=== PATIENT | female | born 1940 | race Caucasian/White ===

== ENCOUNTER 2020-03-06 10:24 | Outpatient (REF) | payer MEDICARE, OTHER, SELFPAY ==
[2020-03-06 14:36] LABS: MANUAL DIFF FLAG NO
[2020-03-06 14:42] LABS: Basophils Percent Auto 0.7 % (0-2); Eosinophils Absolute Auto 0.2 X10*3/uL (0.0-0.4); Eosinophils Percent Auto 3.8 % (0-4); Hematocrit 38.4 % (37-47); Hemoglobin 12.5 g/dl (12.0-16.0); Imm Gran Abs Auto 0.02 X10*3/uL (0.00-0.03); Imm Gran Pct Auto 0.5 % (0.0-0.4); Lymphocytes Absolute Auto 1.2 X10*3/uL (1.2-4.9); Lymphocytes Percent Auto 27.5 % (20-40); Mean Corpuscular HGB Conc 32.6 g/dl (31.0-35.0); Mean Corpuscular Hemoglobin 31.1 pg (27.0-33.0); Mean Corpuscular Volume 95.5 fL (80-98); Mean Platelet Volume 11.6 fL (9.4-12.3); Monocytes Absolute Auto 0.4 X10*3/uL (0.1-1.2); Monocytes Percent Auto 9.7 % (2-11); Neutrophils Absolute Auto 2.6 X10*3/uL (2.0-8.3); Neutrophils Percent Auto 57.8 % (45-73); Platelet Count 206 X10*3/uL (160-400); Red Blood Count 4.02 X10*6/uL (4.20-5.50); Red Cell Distribution Width 12.1 % (11.0-16.0); White Blood Count 4.4 X10*3/uL (4.8-10.8)
[2020-03-06 15:10] LABS: Alanine Aminotransferase 11 U/L (0-31); Albumin Level 4.4 g/dL (3.5-5.0); Alkaline Phosphatase 49 U/L (39-117); Anion Gap 13 (12-20); Aspartate Amino Transferase 15 U/L (5-31); Bilirubin Total 1.3 mg/dL (0.0-1.0); Blood Urea Nitrogen 18 mg/dL (9-16); Calcium 9.1 mg/dL (8.4-10.2); Carbon Dioxide 27 mmol/L (22-29); Chloride 105 mmol/L (96-108); Cholesterol 220 mg/dL; Estimated Glomerular Filt Rate 47; Glucose Random 83 mg/dL (60-115); HDL Cholesterol 51 mg/dL; LDL Cholesterol Calculated 131 mg/dl; Potassium 4.5 mmol/l (3.3-5.1); Sodium 140 mmol/L (135-145); Total Protein 6.8 g/dL (6.5-8.0); Triglycerides 192 mg/dL
[2020-03-06 15:33] LABS: Free T4 (Free Thyroxine) 0.92 ng/dL (0.71-1.85); Thyroid Stimulating Hormone 3.49 mIU/mL (0.32-4.0); Vitamin B12 1065 pg/mL (200-900)
== END 2020-03-06 10:25 | disposition home or self-care (01) ==
LOC: HO.10HDL 10:24
PROVIDERS: Visit Provider Internal Medicine
DX: I12.9 Hypertensive chronic kidney disease with stage 1 through stage 4 chronic kidney disease, or unspecified chronic kidney disease (principal); N18.9 Chronic kidney disease, unspecified; E03.9 Hypothyroidism, unspecified; K21.9 Gastro-esophageal reflux disease without esophagitis; E78.00 Pure hypercholesterolemia, unspecified
CPT/HCPCS: 36415; 80053; 80061; 82607; 84439; 84443; 85025

== ENCOUNTER 2020-10-04 07:38 | Outpatient (REF) | payer MEDICARE, OTHER, SELFPAY ==
[2020-10-04 11:10] LABS: MANUAL DIFF FLAG NO
[2020-10-04 11:25] LABS: Eosinophils Absolute Auto 0.2 X10*3/uL (0.0-0.4); Eosinophils Percent Auto 4.5 % (0-4); Hemoglobin 12.5 g/dl (12.0-16.0); Imm Gran Abs Auto 0.01 X10*3/uL (0.00-0.03); Imm Gran Pct Auto 0.3 % (0.0-0.4); Lymphocytes Absolute Auto 1.2 X10*3/uL (1.2-4.9); Lymphocytes Percent Auto 30.2 % (20-40); Mean Corpuscular HGB Conc 32.9 g/dl (31.0-35.0); Mean Corpuscular Hemoglobin 31.1 pg (27.0-33.0); Mean Corpuscular Volume 94.5 fL (80-98); Mean Platelet Volume 11.8 fL (9.4-12.3); Monocytes Absolute Auto 0.5 X10*3/uL (0.1-1.2); Monocytes Percent Auto 11.8 % (2-11); Neutrophils Absolute Auto 2.1 X10*3/uL (2.0-8.3); Neutrophils Percent Auto 52.2 % (45-73); Platelet Count 184 X10*3/uL (160-400); Red Blood Count 4.02 X10*6/uL (4.20-5.50); Red Cell Distribution Width 12.1 % (11.0-16.0)
[2020-10-04 11:42] LABS: Alanine Aminotransferase 10 U/L (0-31); Albumin Level 4.2 g/dL (3.5-5.0); Alkaline Phosphatase 51 U/L (39-117); Anion Gap 12 (12-20); Aspartate Amino Transferase 14 U/L (5-31); Bilirubin Total 1.2 mg/dL (0.0-1.0); Blood Urea Nitrogen 16 mg/dL (9-16); Calcium 9.3 mg/dL (8.4-10.2); Carbon Dioxide 24 mmol/L (22-29); Chloride 108 mmol/L (96-108); Cholesterol 194 mg/dL; Estimated Glomerular Filt Rate 42; Glucose Fasting 86 mg/dL (60-99); HDL Cholesterol 54 mg/dL; LDL Cholesterol Calculated 98 mg/dl; Potassium 4.4 mmol/L (3.3-5.1); Sodium 140 mmol/L (135-145); Total Protein 6.7 g/dL (6.5-8.0); Triglycerides 213 mg/dL
[2020-10-04 11:49] LABS: Free T4 (Free Thyroxine) 0.94 ng/dL (0.71-1.85); Thyroid Stimulating Hormone 7.22 uIU/mL (0.32-4.0)
== END 2020-10-04 07:39 | disposition home or self-care (01) ==
LOC: HO.HMGCLDS 07:38
PROVIDERS: PCP Internal Medicine; Visit Provider Internal Medicine
DX: I10 Essential (primary) hypertension (principal); E03.9 Hypothyroidism, unspecified; E78.00 Pure hypercholesterolemia, unspecified
CPT/HCPCS: 36415; 80053; 80061; 84439; 84443; 85025

== ENCOUNTER 2021-01-31 09:30 | Outpatient (REF) | payer MEDICARE, OTHER, SELFPAY ==
[2021-01-31 12:04] LABS: Anion Gap 12 (12-20); Blood Urea Nitrogen 22 mg/dL (9-16); Calcium 9.6 mg/dL (8.4-10.2); Carbon Dioxide 25 mmol/L (22-29); Chloride 107 mmol/L (96-108); Estimated Glomerular Filt Rate 39; Glucose Random 99 mg/dL (60-115); Potassium 4.6 mmol/L (3.3-5.1); Sodium 139 mmol/L (135-145)
[2021-01-31 12:21] LABS: Vitamin B12 1005 pg/mL (200-900)
== END 2021-01-31 09:31 | disposition home or self-care (01) ==
LOC: HO.HMGCLDS 09:30
PROVIDERS: PCP Internal Medicine; Visit Provider Internal Medicine
DX: E03.9 Hypothyroidism, unspecified (principal); I12.9 Hypertensive chronic kidney disease with stage 1 through stage 4 chronic kidney disease, or unspecified chronic kidney disease; N18.9 Chronic kidney disease, unspecified; E53.8 Deficiency of other specified B group vitamins
CPT/HCPCS: 36415; 80048; 82607; 84439; 84443

== ENCOUNTER 2021-07-30 10:54 | Outpatient (REF) | payer MEDICARE, OTHER, SELFPAY ==
--- NOTE | ~2021-07-30 | XR_ITS ---
EXAMINATION: XR NASAL BONES CLINICAL INFORMATION: Fall COMPARISON: None TECHNIQUE: 3 views of the nasal bones were obtained. FINDINGS: There are no fractures or dislocations. No bone, joint or soft tissue abnormality is demonstrated. XR/XR nasal bones min 3V IMPRESSION: Unremarkable examination.
--- NOTE | ~2021-07-30 | XR_ITS ---
EXAMINATION: XR KNEE, RIGHT CLINICAL INFORMATION: Fall COMPARISON: Previous x-ray March 2012 TECHNIQUE: Four views of the right knee. FINDINGS: There is a 3 component right knee replacement in satisfactory position. No fracture or dislocation or x-ray evidence of loosening is seen. There is a small joint effusion. XR/XR knee RT 4V IMPRESSION: No fracture or dislocation. Right knee replacement.
== END 2021-07-30 10:55 | disposition home or self-care (01) ==
LOC: HO.XRAY 10:54
PROVIDERS: PCP Internal Medicine; Visit Provider Internal Medicine
DX: S09.92XD Unspecified injury of nose, subsequent encounter (principal); S89.91XD Unspecified injury of right lower leg, subsequent encounter; W19.XXXD Unspecified fall, subsequent encounter
CPT/HCPCS: 70160; 73564

== ENCOUNTER 2022-09-10 10:41 | Outpatient (REF) | payer MEDICARE, OTHER, SELFPAY ==
--- NOTE | ~2022-09-10 | XR_ITS ---
EXAMINATION: XR CERVICAL SPINE CLINICAL INFORMATION: Neck pain COMPARISON: None available. TECHNIQUE: 6 views of the cervical spine, inclusive of flexion and extension views, were obtained. FINDINGS: Bone alignment is normal. No fracture or dislocation. There is degenerative spondylosis and degenerative disc disease at C4-C5 and C5-C6. There is mild degenerative spondylosis at C6-C7. There is bilateral neuroforaminal narrowing from bony osteophyte at C4-C5. Prevertebral soft tissues are normal. XR/XR cervical spine 5V IMPRESSION: Mild degenerative changes.
[2022-09-10 13:39] LABS: MANUAL DIFF FLAG NO
[2022-09-10 13:49] LABS: Basophils Percent Auto 0.6 % (0-2); Eosinophils Absolute Auto 0.1 X10*3/uL (0.0-0.4); Eosinophils Percent Auto 2.5 % (0-4); Hematocrit 38.4 % (37.0-47.0); Hemoglobin 12.9 g/dl (12.0-16.0); Imm Gran Abs Auto 0.02 X10*3/uL (0.00-0.03); Imm Gran Pct Auto 0.4 % (0.0-0.4); Lymphocytes Absolute Auto 1.4 X10*3/uL (1.2-4.9); Lymphocytes Percent Auto 29.4 % (20-40); Mean Corpuscular HGB Conc 33.6 g/dl (31.0-35.0); Mean Corpuscular Hemoglobin 31.1 pg (27.0-33.0); Mean Corpuscular Volume 92.5 fL (80.0-98.0); Mean Platelet Volume 11.6 fL (9.4-12.3); Monocytes Absolute Auto 0.5 X10*3/uL (0.1-1.2); Monocytes Percent Auto 10.4 % (2-11); Neutrophils Absolute Auto 2.7 x10*3/uL (2.0-8.3); Neutrophils Percent Auto 56.7 % (45-73); Platelet Count 209 X10*3/uL (160-400); Red Blood Count 4.15 X10*6/uL (4.20-5.50); Red Cell Distribution Width 12.5 % (11.0-16.0); White Blood Count 4.7 X10*3/uL (4.8-10.8)
[2022-09-10 14:21] LABS: Alanine Aminotransferase 10 U/L (0-31); Albumin Level 4.3 g/dL (3.5-5.0); Alkaline Phosphatase 56 U/L (39-117); Anion Gap 13 (12-20); Aspartate Amino Transferase 15 U/L (5-31); Bilirubin Total 1.3 mg/dL (0.0-1.0); Blood Urea Nitrogen 20 mg/dL (9-16); Calcium 9.5 mg/dL (8.4-10.2); Carbon Dioxide 25 mmol/L (22-29); Chloride 108 mmol/L (96-108); Cholesterol 210 mg/dL; Estimated Glomerular Filt Rate 42; Glucose Fasting 91 mg/dL (60-99); HDL Cholesterol 57 mg/dL; LDL Cholesterol Calculated 127 mg/dl; Potassium 4.8 mmol/L (3.3-5.1); Sodium 141 mmol/L (135-145); Total Protein 6.6 g/dL (6.5-8.0); Triglycerides 133 mg/dL
[2022-09-10 14:39] LABS: Thyroid Stimulating Hormone 4.72 uIU/mL (0.32-4.0)
== END 2022-09-10 10:42 | disposition home or self-care (01) ==
LOC: HO.10HDL 10:41
PROVIDERS: Visit Provider Internal Medicine
DX: I10 Essential (primary) hypertension (principal); E78.5 Hyperlipidemia, unspecified; E78.00 Pure hypercholesterolemia, unspecified; M54.2 Cervicalgia
CPT/HCPCS: 36415; 72050; 80053; 80061; 84439; 84443; 85025

== ENCOUNTER 2023-01-23 12:20 | Outpatient (REF) | payer MEDICARE, OTHER, SELFPAY ==
[2023-01-23 13:43] LABS: MANUAL DIFF FLAG NO
[2023-01-23 13:48] LABS: Basophils Absolute Auto 0.1 X10*3/uL (0.0-0.2); Basophils Percent Auto 0.7 % (0-2); Eosinophils Absolute Auto 0.1 X10*3/uL (0.0-0.4); Eosinophils Percent Auto 1.5 % (0-4); Hematocrit 37.8 % (37.0-47.0); Hemoglobin 12.7 g/dl (12.0-16.0); Imm Gran Abs Auto 0.01 X10*3/uL (0.00-0.03); Imm Gran Pct Auto 0.1 % (0.0-0.4); Lymphocytes Absolute Auto 1.6 X10*3/uL (1.2-4.9); Mean Corpuscular HGB Conc 33.6 g/dl (31.0-35.0); Mean Corpuscular Hemoglobin 31.4 pg (27.0-33.0); Mean Corpuscular Volume 93.3 fL (80.0-98.0); Mean Platelet Volume 11.9 fL (9.4-12.3); Monocytes Absolute Auto 0.6 X10*3/uL (0.1-1.2); Monocytes Percent Auto 8.2 % (2-11); Neutrophils Absolute Auto 4.6 x10*3/uL (2.0-8.3); Neutrophils Percent Auto 66.5 % (45-73); Platelet Count 232 X10*3/uL (160-400); Red Blood Count 4.05 X10*6/uL (4.20-5.50); Red Cell Distribution Width 12.3 % (11.0-16.0); White Blood Count 6.8 X10*3/uL (4.8-10.8)
[2023-01-23 15:43] LABS: Anion Gap 13 (12-20); Blood Urea Nitrogen 23 mg/dL (9-16); Calcium 9.3 mg/dL (8.4-10.2); Carbon Dioxide 25 mmol/L (22-29); Chloride 108 mmol/L (96-108); Estimated Glomerular Filt Rate 42; Glucose Random 111 mg/dL (60-115); Potassium 4.1 mmol/L (3.3-5.1); Sodium 142 mmol/L (135-145)
[2023-01-23 15:45] LABS: Free T4 (Free Thyroxine) 1.06 ng/dL (0.71-1.85); Thyroid Stimulating Hormone 0.46 uIU/mL (0.32-4.0)
== END 2023-01-23 12:21 | disposition home or self-care (01) ==
LOC: HO.HMGCLDS 12:20
PROVIDERS: PCP Internal Medicine; Visit Provider Internal Medicine
DX: I12.9 Hypertensive chronic kidney disease with stage 1 through stage 4 chronic kidney disease, or unspecified chronic kidney disease (principal); E03.9 Hypothyroidism, unspecified; N18.9 Chronic kidney disease, unspecified
CPT/HCPCS: 36415; 80048; 84439; 84443; 85025

== ENCOUNTER 2023-07-31 11:29 | Outpatient (REF) | payer MEDICARE, OTHER, SELFPAY ==
[2023-07-31 12:41] LABS: MANUAL DIFF FLAG NO
[2023-07-31 12:46] LABS: Basophils Percent Auto 0.9 % (0-2); Eosinophils Absolute Auto 0.1 X10*3/uL (0.0-0.4); Eosinophils Percent Auto 2.2 % (0-4); Hematocrit 35.4 % (37.0-47.0); Hemoglobin 12.2 g/dl (12.0-16.0); Imm Gran Abs Auto 0.01 X10*3/uL (0.00-0.03); Imm Gran Pct Auto 0.2 % (0.0-0.4); Lymphocytes Absolute Auto 1.2 X10*3/uL (1.2-4.9); Lymphocytes Percent Auto 25.7 % (20-40); Mean Corpuscular HGB Conc 34.5 g/dl (31.0-35.0); Mean Corpuscular Hemoglobin 31.8 pg (27.0-33.0); Mean Corpuscular Volume 92.2 fL (80.0-98.0); Mean Platelet Volume 11.1 fL (9.4-12.3); Monocytes Absolute Auto 0.5 X10*3/uL (0.1-1.2); Monocytes Percent Auto 10.4 % (2-11); Neutrophils Absolute Auto 2.7 x10*3/uL (2.0-8.3); Neutrophils Percent Auto 60.6 % (45-73); Platelet Count 198 X10*3/uL (160-400); Red Blood Count 3.84 X10*6/uL (4.20-5.50); Red Cell Distribution Width 11.9 % (11.0-16.0); White Blood Count 4.5 X10*3/uL (4.8-10.8)
[2023-07-31 13:36] LABS: Alanine Aminotransferase 9 U/L (0-31); Albumin Level 4.1 g/dL (3.5-5.0); Alkaline Phosphatase 60 U/L (39-117); Anion Gap 12 (12-20); Aspartate Amino Transferase 12 U/L (5-31); Blood Urea Nitrogen 16 mg/dL (9-16); Calcium 9.2 mg/dL (8.4-10.2); Carbon Dioxide 24 mmol/L (22-29); Chloride 108 mmol/L (96-108); Cholesterol 231 mg/dL (<200); Estimated Glomerular Filt Rate 47; Glucose Random 88 mg/dL (60-115); Potassium 4.3 mmol/L (3.3-5.1); Sodium 140 mmol/L (135-145); Total Protein 6.7 g/dL (6.5-8.0)
[2023-07-31 13:54] LABS: Free T4 (Free Thyroxine) 1.05 ng/dL (0.71-1.85); Thyroid Stimulating Hormone 1.93 uIU/mL (0.32-4.0)
== END 2023-07-31 11:30 | disposition home or self-care (01) ==
LOC: HO.10HDL 11:29
PROVIDERS: Visit Provider Internal Medicine
DX: I12.9 Hypertensive chronic kidney disease with stage 1 through stage 4 chronic kidney disease, or unspecified chronic kidney disease (principal); E03.9 Hypothyroidism, unspecified; N18.9 Chronic kidney disease, unspecified
CPT/HCPCS: 36415; 80053; 82465; 84439; 84443; 85025

== ENCOUNTER 2024-04-26 09:34 | Outpatient (REF) | payer MEDICARE, SELFPAY ==
--- OUTSIDE RECORDS SUMMARY | 2024-04-26 09:37 | XMS_ITS | Continuity of Care Document ---
[facility] Address [address], [address] [place] [address]- Care Team Providers Care Scalp Specialist Name Role Phone Delroy Bowers MD Primary Care Physician [phone] [id number](s): 03/07/24 - 04/06/24 [facility] [address], [address] [place], [place] [address] Attending Physician: Krystal Salazar Admitting Physician: Krystal Salazar Referring Physician: Krystal Salazar Encounter Type: Triage Allergies, Adverse Reactions, Alerts No Known Allergies Medications acetaminophen 325 mg oral tablet 650 mg, By Mouth, Every 6 hours, Refills 0, Maintenance, 04/27/19 9:54:00 AM EST Start Date: 04/27/19 Status: Ordered Repeat number: 1 Colace Capsule 100 mg, 1, capsule, By Mouth, 2 times a day, Refills 0, Maintenance, 04/27/19 9:54:00 AM EST Start Date: 04/27/19 Status: Ordered Repeat number: 1 levothyroxine 125 mcg (0.125 mg) oral tablet 1 tablet = 125 mcg, By Mouth, Daily, 0 Refills, Maintenance, 09/24/15 9:45:02 AM EDT Start Date: 09/24/15 Status: Ordered Repeat number: 1 lisinopril 10 mg oral tablet 10 mg, 1, tablet, By Mouth, Daily, Refills 0, Maintenance, 09/24/15 9:44:32 AM EDT Start Date: 09/24/15 Status: Ordered Repeat number: 1 lovastatin-niacin 20 mg-1000 mg oral tablet 1 tablet, By Mouth, Daily at bedtime, 0 Refills, Maintenance, 09/24/15 9:44:21 AM EDT Start Date: 09/24/15 Status: Ordered Repeat number: 1 pantoprazole 40 mg oral delayed release tablet = 40 mg, By Mouth, Daily, 0 Refills, Maintenance, 04/27/19 9:54:00 AM EST, EC Tablet Start Date: 04/27/19 Status: Ordered Repeat number: 1 Vitamin D3 = 2,000 International_Units, By Mouth, Daily in AM, 0 Refills, Maintenance, 04/25/19 1:40:32 AM EST Start Date: 04/25/19 Status: Ordered Repeat number: 1 Problem List Condition Confirmation Course Effective Dates Status Health Status Informant Vaginal atrophy Confirmed Active Pelvic organ prolapse quantification stage 2 cystocele Confirmed Active Hypercholesteremia Confirmed Active Hypertension Confirmed Active Hypothyroid Confirmed Active Urethral hypermobility Confirmed Active Social History Social History Type Response Smoking Status Never (less than 100 in lifetime) entered on: 04/25/19 Sex Sex Representation Female (finding) Patient Care team information Care Team Personnel Name: Delroy Bowers MD Position: [facility] Outreach Member Role: PCP Address: [address] [place] [address] Delroy Bowers MD [address] Telecom: Name: Ev Cortes RN Position: [facility] RN Member Role: Primary Care Nurse Care Team Related Persons Name: ELLIOT MERCEDES Name: GAURAV HOOK Insurance Providers Guarantor name: PHILIPP MERCEDES Health Plan Information #: 1 Payer: MEDICARE PART B OUTPT Member Number: NA Policy Number: NA Group Number: NA Health Plan Information #: 2 Payer: [place] Member Number: NA Policy Number: NA Group Number: NA
--- OUTSIDE RECORDS SUMMARY | 2024-04-26 09:37 | XMS_ITS | Continuity of Care Document ---
[facility] Address [address], [address] [place] [address]- Care Team Providers Care Pay Station Department Manager Name Role Phone Delroy Bowers MD Primary Care Physician [phone] [id number] Date(s): 02/25/24 - 03/26/24 [facility] Susanjuni CraftInTown[facility] [address] [place], [place] [address] Encounter Type: Triage Allergies, Adverse Reactions, Alerts [...] Team Personnel Name: Delroy Bowers MD Position: [facility] Outreach Member Role: PCP Address: [address] [place] [address] Delroy Elissa TURCIOS [address] Telecom: Name: Ev Cortes RN Position: [facility] RN Member Role: Primary Care Nurse [...]
--- OUTSIDE RECORDS SUMMARY | 2024-04-26 09:37 | XMS_ITS | Continuity of Care Document ---
Author Organization [facility] Address [address], [address] [place] [address]- Care Team Providers Care Billet Sawyer Name Role Phone Delroy Bowers MD Primary Care Physician Encounter [facility] [id number] Date(s): 12/08/23 - 04/06/24 [facility] Susanjuni CraftRadiumOnes [facility] [address], [address] [place] [address]- Attending Physician: Brittny HANKINS, Kiersten Lai Referring Physician: Delroy Bowers MD Encounter Type: Pre Office Visit Allergies, Adverse Reactions, Alerts No Known Allergies [...] Team Personnel Name: Delroy Bowers MD Position: [facility] Outreach Member Role: PCP Address: [address] [place] [address] Del[place] [address] Telecom: Name: Ev Cortes RN Position: [facility] RN Member Role: Primary Care Nurse Care Team Related Persons Name: ELLIOT MERCEDES Name: GAURAV HOOK Insurance Providers Guarantor name: PHILIPP MERCEDES Health Plan Information #: 2 [facility] Member Number: [id number] Policy Number: NA Group Number: NA Health Plan Information #: 1 Payer: MEDICARE PART B OUTPT Member Number: [id number] Policy Number: NA Group Number: NA
[2024-04-26 13:56] LABS: Alanine Aminotransferase 21 U/L (0-31); Alkaline Phosphatase 58 U/L (39-117); Anion Gap 9 (12-20); Aspartate Amino Transferase 21 U/L (5-31); Blood Urea Nitrogen 19 mg/dL (9-16); Calcium 8.9 mg/dL (8.4-10.2); Carbon Dioxide 26 mmol/L (22-29); Chloride 109 mmol/L (96-108); Cholesterol 209 mg/dL (<200); Estimated Glomerular Filt Rate 48; Free T4 (Free Thyroxine) 1.01 ng/dL (0.71-1.85); Glucose Fasting 87 mg/dL (60-99); HDL Cholesterol 48 mg/dL (>40); LDL Cholesterol Calculated 128 mg/dL (<100); Potassium 4.4 mmol/L (3.3-5.1); Sodium 140 mmol/L (135-145); Thyroid Stimulating Hormone 1.23 uIU/mL (0.32-4.0); Total Protein 6.8 g/dL (6.5-8.0); Triglycerides 168 mg/dL (<150); Vitamin D 25-OH Total 32.1 ng/mL (>30)
== END 2024-04-26 09:35 | disposition home or self-care (01) ==
LOC: HO.HMGCLDS 09:34
PROVIDERS: PCP Internal Medicine; Visit Provider Internal Medicine
DX: I10 Essential (primary) hypertension (principal); E78.00 Pure hypercholesterolemia, unspecified; E03.9 Hypothyroidism, unspecified
CPT/HCPCS: 36415; 80053; 80061; 82306; 84439; 84443

== ENCOUNTER 2024-07-29 13:41 | Outpatient (AMB) | payer MEDICARE, MEDICAID, SELFPAY ==
--- NOTE | 2024-07-29 13:53 | MHC.PC.OV ---
Vital Signs 07/29/24 13:58 Height 5 ft 5 in Weight 164 lb BMI 27.3 BP 122/70 Blood Pressure Location Lt brachial Position Sitting Pulse 84 Pulse Source Pulse Oximeter Temp 97.4 F Temp Source Temporal Artery Scan Pulse Oximetry (%) 99 Oxygen Delivery Method Room Air Intake Visit Reasons: Routine Fish And Wildlife Technician Required: No Accompanied by: Self / Same As Patient Allergies No Known Allergies Allergy (Unverified 07/29/24 14:02) Medication List - Last Reconciled 07/29/24 by Adrianne Correa MD levothyroxine 125 mcg PO DAILY lisinopril 10 mg PO DAILY lovastatin 20 mg PO DAILY Tobacco use date assessed: 07/29/24 Fall risk assessment: 1 Fall in past year Last assessed Fall Risk: 07/29/24 Dental Screening Dental Screen Date: 07/29/24 Did you have a dental visit in the last 12 months?: No Did you have a dental problem in the last 6 months where you did not have access to dental care?: No HPI HPI Comments History of Present Illness Details The patient is an 83 year old female with a past medical history of hypothyroid, hyperlipidemia, , GERD, colon polyps, back & neck pain CKD presenting for follow up Last seen for pcp March CV: on lisinopril, lovastatin. BP well controlled. no chest pain, shortness of breath Hypothyroid: on levothyroxine 125mcg daily. Last TSH normal 04/2024 GERD: on prevacid Mammo: has had abnormal in the past. ordered at last visit, she lost it. going to go get mammo & DXA in [facility] Colon:>80 ROS CONSTITUTIONAL: Denies weight loss, fever and chills. HEENT: Denies changes in vision and hearing. RESPIRATORY: Denies SOB and cough. CV: Denies palpitations and CP GI: Denies abdominal pain, nausea, vomiting and diarrhea. : Denies dysuria and urinary frequency. MSK: Denies new myalgia and joint pain. SKIN: Denies rash and pruritus. NEUROLOGICAL: Denies headache PSYCHIATRIC: Denies recent changes in mood. PHYSICAL EXAM: GENERAL: Alert and oriented x 3. NAD EYES: EOMI. Anicteric. HENT: Moist mucous membranes. No scleral icterus. No cervical lymphadenopathy. LUNGS: Clear to auscultation bilaterally. CARDIOVASCULAR: Regular rate and rhythm. No murmur. No JVD. ABDOMEN: Soft, non-tender +bs EXTREMITIES: No edema. Non-tender. SKIN: No rashes or lesions. Warm. NEUROLOGIC: No focal neurological deficits. CN II-XII grossly intact PSYCHIATRIC: Cooperative. Appropriate mood and affect [facility] Family History Mother CHF (congestive heart failure) Diabetes BP (high blood pressure) Father Colon cancer Social History Housing: House Alcohol intake: current Alcohol intake frequency: holidays/special occasions only Patient Tobacco Use Status: Never used Tobacco service: No Current occupational status: retired Cognitive needs: No Hearing needs: No Vision needs: No Questionnaire PHQ-9 Over the last 2 weeks, how often have you been bothered by any of the following problems? 1. Little interest or pleasure in doing things: not at all 2. Feeling down, depressed, or hopeless: not at all 3. Trouble falling or staying asleep, or sleeping too much: not at all 4. Feeling tired or having little energy: not at all 5. Poor appetite or overeating: not at all 6. Feeling bad about yourself - or that you are a failure or have let yourself or your family down: not at all 7. Trouble concentrating on things, such as reading the newspaper or watching television: not at all 8. Moving or speaking so slowly that other people could have noticed. Or the opposite - being so fidgety or restless that you have been moving around a lot more than usual: not at all 9. Thoughts that you would be better off or of hurting yourself in some way: not at all Total score: 0 Depression Screening Interpretation: Negative Depression Screening Done: Yes 23543 - PHQ-9 Billing: Yes Source: Developed by Drs. Johnnie Storey, Margot Singleton, Jewel Traore and colleagues, with an educational brittany from [employer]. AUDIT C Alcohol Use Questionnaire (AUDIT-C) 1. How often do you have a drink containing alcohol?: Monthly or less 2. How many drinks containing alcohol do you have on a typical day when you are drinking?: 1 or 2 3. How often do you have six or more drinks on one occasion?: Never Total Score: 1 MICHAEL-7 AMB Questionnaire MICHAEL-7 Date MICHAEL - 7 assessed: 07/29/24 Feeling nervous, anxious, or on edge: 0 = Not at all Not being able to stop or control worryin = Not at all Worrying too much about different things: 0 = Not at all Trouble relaxin = Not at all Being so restless that it is hard to sit still: 0 = Not at all Becoming easily annoyed or irritable: 0 = Not at all Feeling afraid as if something awful might happen: 0 = Not at all Total MICHAEL-7 score (0-4 normal; 5-9 mild; 10-14 moderate; 15-21 severe): 0 Source: Developed by Drs. Johnnie Storey, Margot Singleton, Jewel Traore and colleagues, with an educational brittany from [employer]. Physical exam (Primary Care) Vital Signs: Last Vital Signs Temp 97.4 F 07/29/24 13:58 Pulse 84 07/29/24 13:58 BP 122/70 07/29/24 13:58 Pulse Ox 99 07/29/24 13:58 Oxygen Delivery Method Room Air 07/29/24 13:58 BMI result Body Mass Index 27.3 Tobacco/Smoking Status: Tobacco use Status Tobacco use date assessed 07/29/24 07/29/24 14:09 Patient Tobacco Use Status Never used Tobacco 07/29/24 14:09 PHQ-9: PHQ-9 Score PHQ-9: Total score 0 07/29/24 14:16 Depression Screening Interpretation: Negative Coding Level of Care Code New Pt Level 4 (02722) Complex EM visit Add On G2211 Diagnoses Primary hypertension I10 Hypertension type: primary hypertension Hyperlipidemia, unspecified hyperlipidemia type E78.5 Hyperlipidemia type: unspecified Gastroesophageal reflux disease without esophagitis K21.9 Esophagitis presence: without esophagitis Additional Codes PHQ-9 - 36807 - PHQ-9 Billing: Yes ([id number]) Assessment & Plan Assessment & Plan (1) HTN (hypertension): Code(s): I10 - Essential (primary) hypertension Category: Medical Qualifiers: Hypertension type: primary hypertension Qualified Code(s): I10 - Essential (primary) hypertension (2) Hyperlipidemia: Code(s): E78.5 - Hyperlipidemia, unspecified Category: Medical Qualifiers: Hyperlipidemia type: unspecified Qualified Code(s): E78.5 - Hyperlipidemia, unspecified (3) GERD (gastroesophageal reflux disease): Code(s): K21.9 - Gastro-esophageal reflux disease without esophagitis Category: Medical Qualifiers: Esophagitis presence: without esophagitis Qualified Code(s): K21.9 - Gastro-esophageal reflux disease without esophagitis Plan 83 y/o presenting [facility] care past medical, surgical, social and family history reviewed Meds reconciled labs ordered mammo, dxa ordered Orders: Orders Complete Blood Count Auto Diff 6 Months E78.5 - Hyperlipidemia, unspecified, I10 - Essential (primary) hypertension, K21.9 - Gastro-esophageal reflux disease without esophagitis, Z13.228 - Encounter for screening for other metabolic disorders Comprehensive Met. Panel 6 Months E78.5 - Hyperlipidemia, unspecified, I10 - Essential (primary) hypertension, K21.9 - Gastro-esophageal reflux disease without esophagitis, Z13.228 - Encounter for screening for other metabolic disorders Lipid Panel 6 Months E78.5 - Hyperlipidemia, unspecified, I10 - Essential (primary) hypertension, K21.9 - Gastro-esophageal reflux disease without esophagitis, Z13.228 - Encounter for screening for other metabolic disorders TSH reflex Free T4 6 Months E78.5 - Hyperlipidemia, unspecified, I10 - Essential (primary) hypertension, K21.9 - Gastro-esophageal reflux disease without esophagitis, Z13.228 - Encounter for screening for other metabolic disorders MM screening mammo BI Today Z12.31 - Encounter for screening mammogram for malignant neoplasm of breast XR DEXA axial skeleton Today M89.9 - Disorder of bone, unspecified, M94.9 - Disorder of cartilage, unspecified
[2024-07-29 13:58] VITALS: BP 122/70; PULSE 84; TEMP 36.3; O2SAT 99; BMI 27.3
== END 2024-07-29 14:33 | disposition home or self-care (01) ==
LOC: HO.HMCHD 13:41
PROVIDERS: PCP Internal Medicine; Visit Provider Internal Medicine
DX: I10 Essential (primary) hypertension (principal); E78.5 Hyperlipidemia, unspecified; K21.9 Gastro-esophageal reflux disease without esophagitis

== ENCOUNTER → 2024-07-29 13:41 | Outpatient (BNVA) | payer MEDICARE, MEDICAID, SELFPAY | PROVIDERS: PCP Internal Medicine; Visit Provider Internal Medicine | DX: I10 Essential (primary) hypertension (principal); E78.5 Hyperlipidemia, unspecified; K21.9 Gastro-esophageal reflux disease without esophagitis; E03.9 Hypothyroidism, unspecified; Z79.899 Other long term (current) drug therapy | CPT/HCPCS: 96127; 99202 ==

== ENCOUNTER 2025-01-18 09:58 | Outpatient (REF) | payer MEDICARE, MEDICAID, SELFPAY ==
--- OUTSIDE RECORDS SUMMARY | 2025-01-18 12:02 | XMS_ITS | Patient Health Record ---
Author Organization [facility] Address [address] [place] [id number] Care Team Providers Care Tier Truck Driver Name Role Phone Elissa (RETIRED) Delroy TURCIOS Primary Care Provide r Gerald Rivera Jr Unavailable Reason For Referral No Information Medications Medication SIG (Take, Route, Frequency, Duration) Notes Start Date End Date Status Colyte with Flavor Packs 240 GM As directed Orally Over the specified time. for 1 day(s) 06/13/2015 Active Lovastatin 20 MG 1 tablet with a meal Orally Once a day Active Lisinopril 10 MG 1 tablet Orally Once a day Active Fluticasone Propionate HFA 44 MCG/ACT 2 puffs Inhalation prn Activ e Levothyroxine Sodium 125 MCG 1 capsule O rally Once a day Active Famotidine 20 MG 1 tablet at bedtime Orally Once a day Active Immunizations Vaccine Route Administration Date Status Comme nts Flu vaccine no Preserv 3 and > Unknown 02/20/2015 Admin istered Problems Problem Type SNOMED Code ICD Code Onset Dates Problem Status W/U Status Risk Notes Problem 772949785 Colon cancer screening (Z12.11) Active confirmed Problem 614983170 Gastroesophageal reflux disease without esophagitis (K21.9) Active confirmed Plan Of Treatment Future Test Test Name Order Date COLONOSCOPY 06/13/2015 Insurance Providers Payer Name Payer Address Payer Phone Subscriber Number Group Number Insured Name Patient Relationship to Insured Coverage Start Date Coverage End Date MEDICARE OF [employer] [address] [place] [address] [id number] PHILIPP MERCEDES Self - patient is the insured Medical (General) History Medical History History ICD Code colonoscopy 6-6-2008 colon polyp hypertension elevated Cholesterol Denies [place],DM,CVA,Lung disease,renal dise ase Surgical History Surgery Date(Month/Year) left knee replacement thyroid nodule removal
[2025-01-18 14:37] LABS: Folate 9.5 ng/mL (> or = 4.0); Vitamin B12 362 pg/mL (200-900)
== END 2025-01-18 09:59 | disposition home or self-care (01) ==
LOC: HO.HMGCLDS 09:58
PROVIDERS: PCP Physician Assistant Medical; Visit Provider Physician Assistant Medical
DX: R20.0 Anesthesia of skin (principal)
CPT/HCPCS: 36415; 82607; 82746

== ENCOUNTER 2025-03-14 11:51 | Outpatient (REF) | payer MEDICARE, MEDICAID, SELFPAY ==
[2025-03-14 13:09] LABS: MANUAL DIFF FLAG NO
[2025-03-14 13:16] LABS: Hematocrit 36.7 % (37.0-47.0); Hemoglobin 12.5 g/dl (12.0-16.0); Imm Gran Abs Auto 0.04 X10*3/uL (0.00-0.03); Imm Gran Pct Auto 0.7 % (0.0-0.4); Lymphocytes Absolute Auto 1.4 X10*3/uL (1.2-4.9); Mean Corpuscular HGB Conc 34.1 g/dl (31.0-35.0); Mean Corpuscular Hemoglobin 32.3 pg (27.0-33.0); Mean Corpuscular Volume 94.8 fL (80.0-98.0); NRBC Abs Auto 0.000 X10*3/uL (0.0-0.012); NRBC Pct Auto 0.0 /100WBC (0.0-0.2); Platelet Count 192 X10*3/uL (160-400); Red Blood Count 3.87 X10*6/uL (4.20-5.50); White Blood Count 5.8 X10*3/uL (4.8-10.8)
[2025-03-14 13:44] LABS: Alanine Aminotransferase 35 U/L (0-31); Albumin Level 4.8 g/dL (3.5-5.0); Alkaline Phosphatase 49 U/L (39-117); Anion Gap 12 (12-20); Aspartate Amino Transferase 56 U/L (5-31); Blood Urea Nitrogen 19 mg/dL (9-16); Calcium 9.5 mg/dL (8.4-10.2); Carbon Dioxide 28 mmol/L (22-29); Chloride 104 mmol/L (96-108); Cholesterol 357 mg/dL (<200); Estimated Glomerular Filt Rate 32; HDL Cholesterol 58 mg/dL (>40); Potassium 4.2 mmol/L (3.3-5.1); Sodium 140 mmol/L (135-145); Total Protein 7.3 g/dL (6.5-8.0); Triglycerides 295 mg/dL (<150)
--- OUTSIDE RECORDS SUMMARY | 2025-03-14 14:40 | XMS_ITS | Patient Health Record ---
Author Organization [facility] Address [address] [place] [id number] Care Team Providers Care Admeasurer Name Role Phone Elissa (RETIRED) Delroy TURCIOS Primary Care Provide r Gerald Rivera Jr Unavailable Reason For Referral No Information Medications Medication SIG (Take, Route, Frequency, Duration) Notes Start Date End Date Status Colyte with Flavor Packs 240 GM As directed Orally Over the specified time.; Duration: 1 day(s) 06/13/2015 Active Lovastatin 20 MG [...] Problem Status W/U Status Risk Notes Problem Colon cancer screening (999883770) Colon cancer screening (Z12.11) Active confirmed Problem Gastroesophageal reflux disease without esophagitis (194579525) Gastroesophageal reflux disease without esophagitis (K21.9) Active confirmed Plan Of Treatment Future Test Test Name Order Date COLONOSCOPY 06/13/2015 Insurance Providers Payer Name Payer Address Payer Phone Subscriber Number Group Number Insured Name Patient Relationship to Insured Coverage Start Date Coverage End Date MEDICARE OF [employer] [address] [place] [id number] PHILIPP MERCEDES Self - patient is the insured Medical (General) History Medical History History ICD Code colonoscopy 10-15-2007 colon polyp hypertension elevated Cholesterol Denies [place],DM,CVA,Lung disease,renal dise ase Surgical History Surgery Date(Month/Year) left knee replacement thyroid nodule removal
[2025-03-14 14:43] LABS: Free T4 (Free Thyroxine) < 0.42 ng/dL (0.71-1.85)
== END 2025-03-14 11:52 | disposition home or self-care (01) ==
LOC: HO.10HDL 11:51
PROVIDERS: Visit Provider Internal Medicine
DX: E78.5 Hyperlipidemia, unspecified (principal); I10 Essential (primary) hypertension; K21.9 Gastro-esophageal reflux disease without esophagitis; R42 Dizziness and giddiness; R26.89 Other abnormalities of gait and mobility; H91.93 Unspecified hearing loss, bilateral
CPT/HCPCS: 36415; 80053; 80061; 84439; 84443; 85025

== ENCOUNTER 2025-04-19 09:46 | Outpatient (AMB) | payer MEDICARE, MEDICAID, SELFPAY ==
--- NOTE | 2025-04-19 09:53 | MHC.PC.OV ---
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 Accompanied by: Self / Same As Patient Allergies No Known Allergies Allergy (Verified 04/19/25 09:54) Medication List - Last Reconciled 04/19/25 by WILLY Guadarrama cetirizine 10 mg PO DAILY levothyroxine 125 mcg PO DAILY lisinopril 10 mg PO DAILY lovastatin 20 mg PO DAILY [id number]-[id number]-[id number] 3.5-10,000-1 mg/mL-unit/mL-% 4 drps otic (ears) TID 7 days Tobacco use date assessed: 03/14/25 Dental Screening Dental Screen Date: 03/14/25 HPI HPI Comments History of Present Illness Details The patient is an 83 year old female with a past medical history of hypothyroid, hyperlipidemia, , GERD, colon polyps, back & neck pain CKD presenting for follow up Last seen for pcp March HTN/HLD: For last provider note about 2 months ago, she had reported she had not been taking her lovastatin, lisinopril, levothyroxine. She has since resumed these. Last LDL 220. Blood pressure in the office today is 120/70. no chest pain, shortness of breath. Hypothyroid: on levothyroxine 125mcg daily. Can happen taking this, but resumed early March. She does take the medication correctly by itself without any food or medication for 1 hour. She is not taking any biotin. Last TSH >100, free T4 <0.42 GERD: on prevacid CKD stage III- GFR down to 32. Not following with Nephrology Concerns: Recent ear infection with hearing loss. Pain resolved with antibiotics, but still has hearing loss. Was referred to audiology but has not been contacted for an appointment Weight gain- has had significant stress Health maintenance: Mammo: has had abnormal in the past. ordered at last visit, she lost it. going to go get mammo & DXA in [facility] Colon:>80 Insurance will not cover DEXA scan ROS: General: No fevers, malaise, unintentional weight loss HEENT: No blurred vision, diplopia. No sore throat, nasal congestion, rhinorrhea, sinus pain, ear pain.+ hearing loss Cardiovascular: No chest pain, palpitations, or leg edema Respiratory: No shortness of breath, wheezing, cough GI: No abdominal pain, nausea, vomiting, diarrhea, constipation, melena, hematochezia : No dysuria, hematuria, increased urinary frequency, decreased urinary output MSK: No myalgia, back pain Neuro: No headaches, weakness, paresthesias Skin: No rashes or lesions EXAM: Constitutional - Awake and Alert, No apparent distress Eyes - PERRL Cardiovascular - S1S2, RRR, No edema Respiratory - Normal lung expansion, Normal respiratory effort, No respiratory distress, CTA bilaterally Extremities - no calf tenderness bilaterally, no swelling Skin - Warm/Dry Neurological - Alert & oriented x3 Psychological - Appropriate affect [facility] Medical History (Updated 04/19/25 @ 10:36 by WILLY Guadarrama) Chronic kidney disease, stage III (moderate) Bilateral hearing loss Balance disorder Allergic rhinitis Dizziness Numbness in feet Hypothyroidism Surgical History History of colonoscopy (~09/28/15) Family History (Updated 03/14/25 @ 11:25 by Ines Tinajero MA) Mother CHF (congestive heart failure) Diabetes BP (high blood pressure) Father Colon cancer Social History Housing: House Alcohol intake: current Alcohol intake frequency: holidays/special occasions only Patient Tobacco Use Status: Never used Tobacco e-Cigarette/Vaping Use: Never Used service: No Current occupational status: retired Cognitive needs: No Hearing needs: No Vision needs: Yes Questionnaire PHQ-9 Over the last 2 weeks, how often have you been bothered by any of the following problems? 1. Little interest or pleasure in doing things: not at all 2. Feeling down, depressed, or hopeless: not at all 3. Trouble falling or staying asleep, or sleeping too much: not at all 4. Feeling tired or having little energy: not at all 5. Poor appetite or overeating: not at all 6. Feeling bad about yourself - or that you are a failure or have let yourself or your family down: not at all 7. Trouble concentrating on things, such as reading the newspaper or watching television: not at all 8. Moving or speaking so slowly that other people could have noticed. Or the opposite - being so fidgety or restless that you have been moving around a lot more than usual: not at all 9. Thoughts that you would be better off or of hurting yourself in some way: not at all Total score: 0 Depression Screening Interpretation: Negative Depression Screening Done: Yes 61771 - PHQ-9 Billing: Yes Source: Developed by Drs. Johnnie Storey, Margot Singleton, Jewel Traore and colleagues, with an educational brittany from [employer]. Thrive Questionnaire Date Thrive assessed: 03/14/25 MICHAEL-7 AMB Questionnaire MICHAEL-7 Date MICHAEL - 7 assessed: 03/14/25 Source: Developed by Drs. Johnnie Storey, Margot Singleton, Jewel Traore and colleagues, with an educational brittany from [employer]. Physical exam (Primary Care) Vital Signs: Last Vital Signs Temp 97.6 F 04/19/25 09:59 Pulse 51 04/19/25 09:59 Resp 14 04/19/25 09:59 BP 120/70 04/19/25 09:59 Pulse Ox 99 04/19/25 09:59 Oxygen Delivery Method Room Air 04/19/25 09:59 BMI result Body Mass Index 28.6 Tobacco/Smoking Status: Tobacco use Status Tobacco use date assessed 03/14/25 04/19/25 09:53 Patient Tobacco Use Status Never used Tobacco 04/19/25 09:53 e-Cigarette/Vaping Use Never Used 04/19/25 09:53 PHQ-9: PHQ-9 Score PHQ-9: Total score 0 04/19/25 10:27 Depression Screening Interpretation: Negative Thrive Assessment: Date of Thrive Assessment Date Thrive assessed 03/14/25 04/19/25 09:53 Coding Level of Care Code Est Pt Level 5 (15624) Add On Problem Visit Only Diagnoses Primary hypertension I10 Hypertension type: primary hypertension Hyperlipidemia, unspecified hyperlipidemia type E78.5 Hyperlipidemia type: unspecified Gastroesophageal reflux disease without esophagitis K21.9 Esophagitis presence: without esophagitis Acquired hypothyroidism E03.9 Hypothyroidism type: acquired Chronic kidney disease, stage III (moderate) N18.30 Additional Codes PHQ-9 - 39790 - PHQ-9 Billing: Yes ([id number]) Time Spent (min) 45 Assessment & Plan Assessment & Plan (1) HTN (hypertension): Comment: BP today was 120/70 Code(s): I10 - Essential (primary) hypertension Category: Medical Qualifiers: Hypertension type: primary hypertension Qualified Code(s): I10 - Essential (primary) hypertension Plan: Controlled. Continue lisinopril 10 mg daily. (2) Hyperlipidemia: Code(s): E78.5 - Hyperlipidemia, unspecified Category: Medical Qualifiers: Hyperlipidemia type: unspecified Qualified Code(s): E78.5 - Hyperlipidemia, unspecified Plan: LDL significantly elevated at 220. Has a resumed statin. Diet low in saturated fats and highly processed foods. Also recommend regular exercise (3) GERD (gastroesophageal reflux disease): Code(s): K21.9 - Gastro-esophageal reflux disease without esophagitis Category: Medical Qualifiers: Esophagitis presence: without esophagitis Qualified Code(s): K21.9 - Gastro-esophageal reflux disease without esophagitis Plan: Controlled. Continue current therapies (4) Hypothyroidism: Code(s): E03.9 - Hypothyroidism, unspecified Category: Medical Qualifiers: Hypothyroidism type: acquired Qualified Code(s): E03.9 - Hypothyroidism, unspecified Plan: TSH with free T4 ordered. Continue levothyroxine 125 mcg daily for now, dose to be adjusted as indicated. She is taking her medication correctly and is not using any biotin supplements. Discussed this could be the reason she is fatigued as well as her cold intolerance (5) Chronic kidney disease, stage III (moderate): Code(s): N18.30 - Chronic kidney disease, stage 3 unspecified Category: Medical Plan: GFR continues to declining. Current GFR 32. Asked to avoid nephrotoxins and drink at least 64 oz of water daily. Referred to Nephrology Plan Follow up in the office as scheduled in 6 months with PCP. Will recheck thyroid labs today. Labs also ordered for 4 months from now prior to her visit Orders: Orders Thyroid Stimulating Hormone Today E03.9 - Hypothyroidism, unspecified, E78.5 - Hyperlipidemia, unspecified, I10 - Essential (primary) hypertension Free T4 (Free Thyroxine) Today E03.9 - Hypothyroidism, unspecified, E78.5 - Hyperlipidemia, unspecified, I10 - Essential (primary) hypertension Vitamin D 25-OH Total Today E55.9 - Vitamin D deficiency, unspecified Liver Panel Today E03.9 - Hypothyroidism, unspecified, E78.5 - Hyperlipidemia, unspecified, I10 - Essential (primary) hypertension TSH reflex Free T4 Today E03.9 - Hypothyroidism, unspecified, E78.5 - Hyperlipidemia, unspecified, I10 - Essential (primary) hypertension Basic Metabolic Panel Today E03.9 - Hypothyroidism, unspecified, E78.5 - Hyperlipidemia, unspecified, I10 - Essential (primary) hypertension Lipid Panel Today E03.9 - Hypothyroidism, unspecified, E78.5 - Hyperlipidemia, unspecified, I10 - Essential (primary) hypertension Basic Metabolic Panel 3 Months E03.9 - Hypothyroidism, unspecified, E78.5 - Hyperlipidemia, unspecified, I10 - Essential (primary) hypertension Liver Panel 3 Months E03.9 - Hypothyroidism, unspecified, E78.5 - Hyperlipidemia, unspecified, I10 - Essential (primary) hypertension Lipid Panel 3 Months E03.9 - Hypothyroidism, unspecified, E78.5 - Hyperlipidemia, unspecified, I10 - Essential (primary) hypertension Vitamin D 25-OH Total 3 Months E55.9 - Vitamin D deficiency, unspecified Referrals Nephrology Referral N18.30 - Chronic kidney disease, stage 3 unspecified Patient Instructions: Follow-up with PCP as scheduled.
[2025-04-19 09:59] VITALS: BP 120/70; PULSE 51; RESP 14; TEMP 36.4; O2SAT 99; BMI 28.6
== END 2025-04-19 10:26 | disposition home or self-care (01) ==
LOC: HO.HMCHD 09:46
PROVIDERS: PCP Physician Assistant Medical; Visit Provider Physician Assistant
DX: I12.9 Hypertensive chronic kidney disease with stage 1 through stage 4 chronic kidney disease, or unspecified chronic kidney disease (principal); N18.30 Chronic kidney disease, stage 3 unspecified; E78.5 Hyperlipidemia, unspecified; K21.9 Gastro-esophageal reflux disease without esophagitis; E03.9 Hypothyroidism, unspecified

== ENCOUNTER 2025-04-19 10:33 | Outpatient (REF) | payer MEDICARE, MEDICAID, SELFPAY ==
[2025-04-19 13:55] LABS: Free T4 (Free Thyroxine) 1.29 ng/dL (0.71-1.85); Thyroid Stimulating Hormone 4.75 uIU/mL (0.32-4.0)
== END 2025-04-19 10:34 | disposition home or self-care (01) ==
LOC: HO.10HDL 10:33
PROVIDERS: Visit Provider Physician Assistant
DX: I12.9 Hypertensive chronic kidney disease with stage 1 through stage 4 chronic kidney disease, or unspecified chronic kidney disease (principal); N18.30 Chronic kidney disease, stage 3 unspecified; E78.5 Hyperlipidemia, unspecified; K21.9 Gastro-esophageal reflux disease without esophagitis; E03.9 Hypothyroidism, unspecified; Z79.899 Other long term (current) drug therapy; Z13.31 Encounter for screening for depression
CPT/HCPCS: 36415; 84439; 84443; 96127; 99212